=== PATIENT | male | born 1970 | race Caucasian/White ===

== ENCOUNTER 2022-04-15 15:41 | Inpatient (IN) | payer OTHER ==
[~2022-04-15] VITALS: Ht 172.7 cm; Wt 137.0 kg
[2022-04-15] MEDS ORDERED: ONDANSETRON 4MG INJ IVP ONE (17:30)
[2022-04-15] MEDS ORDERED: 0.9%NACL 1000ML 1,000 ML IV ONE (17:30)
[2022-04-15] MEDS ORDERED: MORPHINE 4 MG SYG IVP ONE ×2 (17:30→20:00)
[2022-04-15] MEDS ORDERED: MAG/ALUM/SIMETH 30 ML UDCUP PO ONE (17:30)
[2022-04-15] MEDS ORDERED: LIDOCAINE HCL 2% VISCOUS 15 ML UDCUP PO ONE (17:30)
[2022-04-15 18:01] LABS: BASOPHILS % (AUTO) 0.5 % (0.0-5.0); EOSINOPHILS % (AUTO) 2.2 % (0.0-8.0); LYMPHOCYTES % (AUTO) 26.2 % (21.0-51.0); MEAN CORPUSCULAR HEMOGLOBIN 29.3 pg (27.0-33.0); MEAN CORPUSCULAR VOLUME 88.7 fL (79-99); MONOCYTES % (AUTO) 6.6 % (3.0-13.0); PLATELET COUNT (AUTO) 252 K/uL (130-400); RED BLOOD CELL COUNT(AUTO) 4.51 MIL/uL (4.50-6.20); RED CELL DISTRIBUTION WIDTH 13.8 % (11.0-15.5); WHITE BLOOD COUNT (AUTO) 7.8 K/uL (4.8-10.8)
[2022-04-15 18:08] LABS: CARBON DIOXIDE 27 mmol/L (21-32); CHLORIDE 100 mmol/L (101-111); CREATININE 1.4 mg/dL (0.5-1.5); GLOMERULAR FILTR. RATE CALC 57 mL/min (>60); GLUCOSE,RANDOM 187 mg/dL (70-105); POTASSIUM 4.4 mmol/L (3.5-5.1); SODIUM SERUM 134 mmol/L (136-145); UREA NITROGEN, BLOOD 22 mg/dL (7-18)
[2022-04-15 18:13] LABS: ALANINE AMINOTRANSFERASE 25 U/L (12-78); ALBUMIN 2.9 g/dL (3.5-5.0); ASPARTATE AMINOTRANSFERASE 16 U/L (10-37); BILIRUBIN,TOTAL 0.2 mg/dL (0.2-1.0); TOTAL PROTEIN, SERUM 7.5 g/dL (6.0-8.3)
[2022-04-15 18:25] LABS: LIPASE < 50 U/L (114-286)
[2022-04-15 19:51] LABS: APPEARANCE,URINE CLEAR (CLEAR); BILIRUBIN,URINE NEGATIVE (NEGATIVE); COLOR,URINE YELLOW (YELLOW); GLUCOSE, URINE (UA) NEGATIVE (NEGATIVE); KETONES,URINE NEGATIVE (NEGATIVE); LEUKOCYTE ESTERASE ,URINE NEGATIVE (NEGATIVE); NITRATE,URINE NEGATIVE (NEGATIVE); OCCULT BLOOD,URINE NEGATIVE (NEGATIVE); PROTEIN,URINE NEGATIVE (NEGATIVE); UROBILINOGEN,URINE 0.2 mg/dL (0.2-1.0)
[2022-04-15] MEDS ORDERED: MORPHINE 4 MG SYG ONE (19:57)
[2022-04-15] MEDS: LEVOFLOXACIN 500 MG/D5W 100 ML 100 ML IV SCH (20:49)
[2022-04-15] MEDS ORDERED: HYDRALAZINE 20MG/ML VIAL IV PRN (21:30)
[2022-04-15] MEDS: 0.9%NACL 1000ML 1,000 ML IV SCH (21:30)
[2022-04-15] MEDS ORDERED: ONDANSETRON 4MG INJ IV PRN (21:30)
[2022-04-16] MEDS ORDERED: MORPHINE 4 MG SYG IVP ONE (00:30)
[2022-04-16] MEDS ORDERED: DEXTROSE 50%-WATER 50 ML DISP.SYRIN IV PRN (01:00)
[2022-04-16] MEDS ORDERED: GLUCAGON 1MG KIT 1 MG ML IM PRN (01:00)
[2022-04-16 07:18] LABS: BASOPHILS % (AUTO) 0.2 % (0.0-5.0); EOSINOPHILS % (AUTO) 1.2 % (0.0-8.0); HEMATOCRIT 39.6 % (42-54); LYMPHOCYTES % (AUTO) 17.7 % (21.0-51.0); MEAN CORPUSCULAR HEMOGLOBIN 28.5 pg (27.0-33.0); MEAN CORPUSCULAR HGB CONC 31.6 g/dL (32.0-36.0); MEAN CORPUSCULAR VOLUME 90.4 fL (79-99); MONOCYTES % (AUTO) 5.9 % (3.0-13.0); NEUTROPHILS % (AUTO) 74.4 % (40.0-77.0); PLATELET COUNT (AUTO) 206 K/uL (130-400); RED BLOOD CELL COUNT(AUTO) 4.38 MIL/uL (4.50-6.20); RED CELL DISTRIBUTION WIDTH 14.2 % (11.0-15.5); WHITE BLOOD COUNT (AUTO) 8.9 K/uL (4.8-10.8)
[2022-04-16 07:30] LABS: CREATININE 1.1 mg/dL (0.5-1.5); POTASSIUM 4.2 mmol/L (3.5-5.1)
[2022-04-16] MEDS: INSULIN HUMULIN R 100 UNIT/ML 3ML SQ SCH ×3 (07:30→18:22)
[2022-04-16] MEDS ORDERED: PANTOPRAZOLE 40 MG/VIAL IVP SCH (09:00)
[2022-04-16] MEDS ORDERED: FAMOTIDINE 20MG VIAL IV SCH (09:00)
[2022-04-16] MEDS ORDERED: MORPHINE 4 MG SYG ONE (09:43)
[2022-04-16] MEDS: 0.9%NACL 1000ML 1,000 ML IV SCH ×2 (09:48→20:39)
[2022-04-16] MEDS ORDERED: MORPHINE 2 MG SYG IVP PRN (10:00)
[2022-04-16 13:54] VITALS: BP 154/86
[2022-04-16 16:00] VITALS: BP 151/77
[2022-04-16 20:00] VITALS: BP 146/81
[2022-04-16] MEDS: LEVOFLOXACIN 500 MG/D5W 100 ML 100 ML IV SCH (20:38)
[2022-04-16] MEDS: MORPHINE 4 MG SYG IVP PRN (20:39)
[2022-04-16] MEDS ORDERED: SIMVASTATIN 20 MG TABLET PO SCH (21:00)
[2022-04-16] MEDS ORDERED: PIOG45TA64 PO (21:01)
[2022-04-16] MEDS ORDERED: PANT40GR PO (21:03)
[2022-04-16] MEDS ORDERED: LISI5TAB21 PO (21:03)
[2022-04-16] MEDS ORDERED: SIMV-43 PO (21:04)
[2022-04-16] MEDS ORDERED: LEVE1000 PO (21:05)
[2022-04-16] MEDS: LEVETIRACETAM 500 MG TABLET PO SCH (21:30)
[2022-04-17] VITALS: BP 150/88
[2022-04-17] MEDS: MORPHINE 4 MG SYG IVP PRN ×2 (02:23→06:54)
[2022-04-17 04:00] VITALS: BP 129/70
[2022-04-17 06:18] LABS: BASOPHILS % (AUTO) 0.1 % (0.0-5.0); EOSINOPHILS % (AUTO) 0.2 % (0.0-8.0); HEMATOCRIT 39.6 % (42-54); LYMPHOCYTES % (AUTO) 14.6 % (21.0-51.0); MEAN CORPUSCULAR HEMOGLOBIN 29.1 pg (27.0-33.0); MEAN CORPUSCULAR HGB CONC 32.3 g/dL (32.0-36.0); MONOCYTES % (AUTO) 6.6 % (3.0-13.0); PLATELET COUNT (AUTO) 233 K/uL (130-400); RED CELL DISTRIBUTION WIDTH 14.2 % (11.0-15.5); WHITE BLOOD COUNT (AUTO) 11.5 K/uL (4.8-10.8)
[2022-04-17] MEDS: INSULIN HUMULIN R 100 UNIT/ML 3ML SQ SCH ×2 (06:29)
[2022-04-17 06:41] LABS: ALBUMIN 2.4 g/dL (3.5-5.0); BILIRUBIN,TOTAL 0.7 mg/dL (0.2-1.0); CREATININE 1.3 mg/dL (0.5-1.5); POTASSIUM 4.2 mmol/L (3.5-5.1); TOTAL PROTEIN, SERUM 6.9 g/dL (6.0-8.3)
[2022-04-17 08:00] VITALS: BP 110/69
[2022-04-17] MEDS ORDERED: PIOGLITAZONE 45MG TAB PO SCH (09:00)
[2022-04-17] MEDS ORDERED: PANTOPRAZOLE 40 MG TAB DR PO SCH (09:00)
[2022-04-17] MEDS ORDERED: LISINOPRIL 5 MG TABLET PO SCH (09:00)
[2022-04-17] MEDS: LEVETIRACETAM 500 MG TABLET PO SCH (09:42)
[2022-04-17 12:00] VITALS: BP 117/71
== END 2022-04-17 14:30 | disposition home or self-care (01) | DRG 394 ==
LOC: EDH 15:41 → UNDOADMIN 21:09 → EDHIP 21:09 → 3BH 04-16 12:22
PROVIDERS: ADMIT Internal Medicine; ATTEND Internal Medicine
DX: T18.3XXA Foreign body in small intestine, initial encounter (principal); I69.354 Hemiplegia and hemiparesis following cerebral infarction affecting left non-dominant side; Z68.41 Body mass index [BMI] 40.0-44.9, adult; E11.9 Type 2 diabetes mellitus without complications; E78.5 Hyperlipidemia, unspecified; I10 Essential (primary) hypertension; Z85.47 Personal history of malignant neoplasm of testis; K21.9 Gastro-esophageal reflux disease without esophagitis; Z90.49 Acquired absence of other specified parts of digestive tract; Z95.828 Presence of other vascular implants and grafts; E66.01 Morbid (severe) obesity due to excess calories; X58.XXXA Exposure to other specified factors, initial encounter; Y93.89 Activity, other specified; Y92.89 Other specified places as the place of occurrence of the external cause; Y99.8 Other external cause status
CPT/HCPCS: 36415; 70360; 70490; 74018; 74176; 80048; 80053; 81003; 82948; 83690; 85025; C9113; G0378; J1815; J1956; J2270; J2405; J7030

== ENCOUNTER 2025-10-18 01:02 | Emergency (ER) | payer MEDICARE, OTHER ==
[~2025-10-18] VITALS: Ht 172.7 cm; Wt 340.2 kg
[~2025-10-18 01:02] MED LIST: LEVE1000 PO; LISI5TAB21 PO; PANT40GR PO; PIOG45TA64 PO; SIMV-43 PO
[2025-10-18 01:54] LABS: IMMATURE GRANULOCYTE ABSOLUTE 0.04 K/uL (0-1); NUCLEATED RED BLOOD CELLS 0.0 % (0.0-0.19); PLATELET COUNT (AUTO) 199 K/uL (130-400); RED BLOOD CELL COUNT(AUTO) 4.51 MIL/uL (4.50-6.20); RED CELL DISTRIBUTION WIDTH 14.6 % (11.0-15.5); WHITE BLOOD COUNT (AUTO) 9.7 K/uL (4.8-10.8)
[2025-10-18 02:03] LABS: CREATININE 1.9 mg/dL (0.5-1.3); GLOMERULAR FILTR. RATE CALC 41.0 mL/min (>90); GLUCOSE,RANDOM 267.0 mg/dL (70-105); SODIUM SERUM 135.0 mmol/L (136-145); UREA NITROGEN, BLOOD 34.0 mg/dL (7-18)
[2025-10-18 02:07] LABS: CREATINE KINASE, TOTAL 89.0 U/L (21-232)
--- NOTE | 2025-10-18 02:19 | HMCIMG ---
EXAM: CR Chest, single view. CLINICAL HISTORY: Right-sided chest pain COMPARISON: None FINDINGS: Poor inspiratory effort. Mild cardiomegaly with bilateral pulmonary congestion. No evidence of pleural effusion or pneumothorax. No acute osseous abnormality. IMPRESSION: Poor inspiratory effort. Mild cardiomegaly with bilateral pulmonary congestion. No evidence of pleural effusion or pneumothorax. /[place]
--- NOTE | 2025-10-18 02:56 | ERN ---
General Chief Complaint: Upper Extremity Pain/Injury Stated Complaint: RIGHT ARM PAIN Time Seen by MD: 01:13 Time Seen by Midlevel: 01:13 Source: patient History of Present Illness Initial Comments Patient is a 54-year-old male with a past medical history of stroke 10 years ago with residual right-sided weakness presenting to the emergency department for e valuation of right-sided chest pain that radiates to his right arm. The patient was seen at a local urgent care earlier today and was given 30 mg of Toradol IM but was ultimately sent to the emergency department to rule out an acute coronary syndrome. The patient states his pain seems to be musculoskeletal in nature but wanted to make sure he was not having a heart attack. Otherwise the patient has no other complaints. Allergies: Coded Allergies: Penicillins (Unverified Allergy, Unknown, 04/15/22) omega-3 acid ethyl esters (Unverified Allergy, Unknown, 04/15/22) Home Meds Reported Medications Levetiracetam (Keppra) 1,000 Mg Tablet, 1000 MG PO BID, TAB 04/16/22 Simvastatin (Simvastatin) 20 Mg Tablet, 20 MG PO HS, TAB 04/16/22 Lisinopril (Lisinopril) 5 Mg Tablet, 5 MG PO AM, TAB 04/16/22 Pantoprazole Sodium (Pantoprazole Sodium) 40 Mg Granpkt.dr, 40 MG PO AM, PACK 04/16/22 Pioglitazone HCl (Pioglitazone HCl) 45 Mg Tablet, 45 MG PO AM, TAB 04/16/22 Past Medical History Past Medical History: Diabetes-Type II, High Cholesterol, Stroke Medical History Other: TETTICULAR CA Past Surgical History: Unknown ROS Dictation CONSTITUTIONAL: Negative except for HPI HEAD/FACE: Negative except for HPI EENT: Negative except for HPI RESPIRATORY: Negative except for HPI GASTROINTESTINAL/ABDOMINAL: Negative except for HPI GENITOURINARY: Negative except for HPI MUSCULOSKELETAL: Negative except for HPI INTEGUMENTARY: Negative except for HPI NEUROLOGICAL/PSYCH: Negative except for HPI HEMATOLOGIC/LYMPHATIC: Negative except for HPI All Systems Negative, Except as noted above. 13 point review of systems assessed and all negative except for above. Physical Exam Physical Exam Dictation Vital Signs reviewed General Appearance: Alert, oriented x 3, no acute distress, well developed, nourished. Head and Face: non-traumatic. Eyes: PERRL, pink conjunctivas, eyelid no trauma, anterior chamber with arcus senilis. Ears: Pinnas intact and no signs of trauma or erythema ear canals clear and no discharge TM no erythema Nose: No discharge, no bleeding. Oropharynx: Mouth normal, tongue pink, pharynx clear,no erythema, tonsils no exudates, no abscesses noted, mucous membrane moist Neck: Supple, non-tender, no thyromegaly, no masses, no JVD, no bruits Breast:Deferred Chest: There was reproducible right-sided chest wall pain, no crepitus, no paradoxical movement, no retractions Lungs:Clear, well-ventilated, symmetric, no rales, no wheezing, no rhonchi, no stridor, good breath sounds bilaterally Heart: Regular rate, regular rhythm, no murmur, no gallops Vascular: no peripheral edema, Abdomen: Soft, positive bowel sounds, nondistended, no guarding, nontender, no rebound, no masses no hepatomegaly, no splenomegaly, no Clinton's sign, no hernias. Rectal: Deferred Genital: Deferred Neurological: Normal speech, motor function intact, sensory function intact Musculoskeletal: Neck nontender, full range of motion, back nontender, full range of motion, Extremities: nontender, full range of motion Skin: Color pink, dry, no turgor, no rash, no lacerations, no abrasions, no contusions. Lymphatic: Deferred Results Laboratory and Microbiology Lab and Micro Result Laboratory Tests Test 10/18/25 01:48 White Blood Count 9.7 K/uL (4.8-10.8) Red Blood Count 4.51 MIL/uL (4.50-6.20) Hemoglobin 13.4 g/dL (14.0-18.0) L Hematocrit 42.8 % (42-54) Mean Corpuscular Volume 94.9 fL (79-99) Mean Corpuscular Hemoglobin 29.7 pg (27.0-33.0) Mean Corpuscular Hemoglobin Concent 31.3 g/dL (32.0-36.0) L Red Cell Distribution Width 14.6 % (11.0-15.5) Platelet Count 199 K/uL (130-400) Mean Platelet Volume 10.2 fL (7.5-10.5) Immature Granulocyte % (Auto) 0.4 % (0-1) Neutrophils (%) (Auto) 70.7 % (40.0-77.0) Lymphocytes (%) (Auto) 21.1 % (21.0-51.0) Monocytes (%) (Auto) 6.4 % (3.0-13.0) Eosinophils (%) (Auto) 1.1 % (0.0-8.0) Basophils (%) (Auto) 0.3 % (0.0-5.0) Neutrophils # (Auto) 6.9 K/uL (1.8-7.7) Lymphocytes # (Auto) 2.1 K/uL (1.0-4.8) Monocytes # (Auto) 0.6 K/uL (0.1-1.0) Eosinophils # (Auto) 0.11 K/uL (0.00-0.70) Basophils # (Auto) 0.03 K/uL (0.00-0.20) Absolute Immature Granulocyte (auto 0.04 K/uL (0-1) Nucleated Red Blood Cells 0.0 % (0.0-0.19) Sodium Level 135 mmol/L (136-145) L Potassium Level 4.8 mmol/L (3.5-5.1) Chloride Level 102 mmol/L (101-111) Carbon Dioxide Level 26 mmol/L (21-32) Blood Urea Nitrogen 34 mg/dL (7-18) H Creatinine 1.9 mg/dL (0.5-1.3) H Glomerular Filtration Rate Calc 41 mL/min (>90) Random Glucose 267 mg/dL (70-105) H Total Calcium 8.7 mg/dL (8.5-10.1) Magnesium Level 1.80 mg/dL (1.80-2.40) Total Creatine Kinase 89 U/L (21-232) Troponin I High Sensitivity 39 ng/L (4-75) Labs Reviewed?: Yes MDM MDM: Differential diagnosis: Acute coronary syndrome, musculoskeletal pain, costochondritis There are no social concerns with this patient. Prescription drug management Prescriptions will include: None Medical management and examination interpretation discussions were had by me with other qualified healthcare professionals as indicated for the patient's care. ED Course Orders Procedure Category Date Status Time 12 Lead Ekg Tracing- EKG 10/18/25 Logged Technical 01:35 Cbc With Differential LAB 10/18/25 Complete 01:35 Basic Metabolic Panel LAB 10/18/25 Complete 01:35 Creatine Kinase, Total LAB 10/18/25 Complete 01:35 Magnesium LAB 10/18/25 Complete 01:35 Troponin I High LAB 10/18/25 Complete Sensitivity 01:35 Chest 1vw RAD 10/18/25 Resulted 01:35 Morphine 2mg Syg PHA 10/18/25 Complete (Morphine 2mg Syg) 02:00 Current Medications Medications (Trade) Dose Ordered Sig/Anay Route PRN Reason Start Time Stop Time Status Last Admin Dose Admin Morphine Sulfate (morPHINE 2MG SYG) 2 mg ONCE ONCE IM 10/18/25 02:00 10/18/25 02:01 DC 10/18/25 01:58 Vital Signs Date Time Temp Pulse Resp B/P (MAP) Pulse Ox O2 Delivery O2 Flow Rate FiO2 10/18/25 01:29 97.5 98 20 158/78 98 Room Air* 0 21 10/18/25 01:13 97.2 92 18 181/79 99 Room Air 0 HEART Score Response (Comments) Value History: Low suspicion (0) 0 EKG: Normal 0 Age: 45-65yrs (+1) 1 Risk Factors: 1-2 risk factors (+1) 1 Initial Troponin: Normal limit (0) 0 HEART Score Risk: Low Risk for MACE (1-3) Total 2 DX & DISP Disposition: Discharge Departure Impression: Primary Impression: Non-cardiac chest pain Additional Impression: Musculoskeletal pain Condition: Stable Additional Instructions: You were evaluated today for chest pain. Your evaluation included an EKG, chest x-ray, and blood work, including cardiac enzyme testing (troponins). All results were normal. There were no signs of a heart attack or other life- threatening conditions at this time. Your chest pain does not appear to be caused by your heart. Many other things can cause chest discomfort Follow up with your primary care provider within the next 3-5 days for re- evaluation. You may also choose to follow up with a picker if symptoms persist or if you have a history heart disease. Rest and avoid heavy physical exertion until cleared by your doctor. Although your evaluation today was normal, some heart or lung conditions can develop later. If you experience new or worsening pain, please return to the ER for re-evaluation per Referrals: SELF,REFERRAL (PCP) Time of Disposition: 02:56 I have reviewed the case, and I agree with, Diagnosis and Plan I performed the substantive portion of the visit. I have reviewed and personally made and approve the management plan that is documented in the note by myself or the KYLEE. I acknowledge for responsibility for the patient's management plan. LOC MABRY PAC Oct 18, 2025 02:56
[2025-10-18 03:15] VITALS: BP 144/75; PULSE 86; RESP 18; TEMP 97.8; O2SAT 98
--- NOTE | 2025-10-18 08:05 | EKG ---
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
== END 2025-10-18 03:18 | disposition home or self-care (01) ==
LOC: EDH 01:02
DX: R07.89 Other chest pain (principal); R53.1 Weakness; E11.9 Type 2 diabetes mellitus without complications; E78.00 Pure hypercholesterolemia, unspecified; Z86.73 Personal history of transient ischemic attack (TIA), and cerebral infarction without residual deficits; Z88.0 Allergy status to penicillin; Z88.8 Allergy status to other drugs, medicaments and biological substances; Z79.899 Other long term (current) drug therapy
CPT/HCPCS: 99285; 71045; 83735; 82550; 84484; 80048; 85025; 36415; 96372; 93005; J2270